=== PATIENT | male | born 1950 | race Caucasian/White ===

== ENCOUNTER 2020-12-01 07:18 | Outpatient (CLI) | payer MEDICARE, BC ==
[2020-11-28 15:06] VITALS: BMI 26.1
[2020-12-01 08:27] VITALS: BP 130/83; TEMP 96.6
== END 2020-12-01 10:45 | disposition home or self-care (01) ==
LOC: RAD 07:18
PROVIDERS: ATTEND Neurological Surgery
DX: M47.26 Other spondylosis with radiculopathy, lumbar region (principal); M54.5 Low back pain; M51.16 Intervertebral disc disorders with radiculopathy, lumbar region; M48.061 Spinal stenosis, lumbar region without neurogenic claudication; M48.07 Spinal stenosis, lumbosacral region; M51.37 Other intervertebral disc degeneration, lumbosacral region; Z98.890 Other specified postprocedural states
CPT/HCPCS: 62304; 72132

== ENCOUNTER 2022-09-21 13:23 | Outpatient (CLI) | payer MEDICARE ==
[2022-09-21 14:42] LABS: #Eosinphils 0.1 10x3/uL (0.0-0.5); #Monocytes 0.8 10x3/uL (0.0-1.1); #Neutrophils 6.1 10x3/uL (1.5-8.4); %Basophils 0.2 % (0.0-2.0); %Lymphocytes 27.4 % (18.0-47.0); %Monocytes 8.3 % (0.0-10.0); %Neutrophils 62.8 % (40.0-75.0); Hemoglobin 15.8 g/dL (13.5-17.5); Mean Corpuscular HGB CONC 36.1 g/dL (32.0-36.0); Mean Corpuscular Hemoglobin 34.2 pg (27.0-33.0); Mean Corpuscular Volume 94.8 fl (81.2-95.1); Mean Platelet Volume 9.2 fl (7.4-10.4); Platelet Count 198 10x3/uL (150-450); RBC Distribution Width 12.7 % (11.5-14.5); Red Blood Cell (RBC) Count 4.62 10x6/uL (4.32-5.72); White Blood Cell (WBC) Count 9.6 10x3/uL (3.5-10.5)
[2022-09-21 14:53] LABS: ALT (SGPT) 51 U/L (8-55); AST (SGOT) 24 U/L (5-34); Albumin 4.6 g/dL (3.4-4.8); Alkaline Phosphatase 59 U/L (40-110); Anion Gap 14 mmol/L (10-20); BUN (Urea Nitrogen) 18 mg/dL (8.4-25.7); Bilirubin, Total 1.8 mg/dL (0.2-1.2); Calc. Creatinine Clearance 0 mL/min (70-130); Calcium 10.3 mg/dL (7.8-10.44); Carbon Dioxide 24 mmol/L (23-31); Chloride 105 mmol/L (98-107); Estimated GFR 75; Globulin 2.3 g/dL (2.4-3.5); Glucose 87 mg/dL (83-110); Potassium 3.9 mmol/L (3.5-5.1); Protein, Total 6.9 g/dL (5.8-8.1); Sodium 139 mmol/L (136-145)
== END 2022-09-21 13:24 | disposition home or self-care (01) ==
LOC: LABBT 13:23
PROVIDERS: ATTEND Internal Medicine Cardiovascular Disease
DX: Z01.818 Encounter for other preprocedural examination (principal); R94.39 Abnormal result of other cardiovascular function study
CPT/HCPCS: 80053; 85025; 93005; 93010

== ENCOUNTER 2022-09-30 05:57 | Day surgery (SDC) | payer MEDICARE ==
[2022-09-28 13:16] VITALS: BMI 27.3
[2022-09-30] MEDS ORDERED: Lidocaine 1% (PF) 30 ML VIAL ONE ×2 (06:19→07:25)
[2022-09-30] MEDS ORDERED: Heparin 10,000 UNITS/ 10 ML VIAL ONE (06:19)
[2022-09-30] MEDS ORDERED: Midazolam HCl 2 mg/2 ml Vial ONE (07:02)
[2022-09-30] MEDS ORDERED: FENTANYL 50 MCG/ML 1 ML VIAL ONE (07:03)
[2022-09-30 07:22] LABS: Cardiac Risk 2.3 (Less than 4.5)
[2022-09-30] MEDS ORDERED: Protamine Sulfate 50 MG/5 ML VIAL ONE (08:35)
== END 2022-09-30 15:28 | disposition home or self-care (01) ==
LOC: SDC 05:57
PROVIDERS: ATTEND Internal Medicine Cardiovascular Disease
PROC: 4A023N8 Measurement of Cardiac Sampling and Pressure, Bilateral, Percutaneous Approach (ICD-10-PCS; principal; 2022-09-30)
PROC: B2111ZZ Fluoroscopy of Multiple Coronary Arteries using Low Osmolar Contrast (ICD-10-PCS; 2022-09-30)
DX: I35.2 Nonrheumatic aortic (valve) stenosis with insufficiency (principal); E78.2 Mixed hyperlipidemia; Z79.82 Long term (current) use of aspirin; Z79.899 Other long term (current) drug therapy
CPT/HCPCS: 80061; 85347; C1751 ×2; C1760; C1769 ×2; C1894; J3010; 36415; 93460; 99152; 99153; J1644; J2001; J2250; J2720